=== PATIENT | male | born 1950 | race African-American/Black ===

== ENCOUNTER 2016-06-10 20:57 | Emergency (ER) | payer MEDICARE ==
[~2016-06-10] VITALS: Ht 175.3 cm; Wt 79.4 kg
[2016-06-10] MEDS ORDERED: IV NS 0.9% 1,000 ML BAG IV ONE (22:30)
[2016-06-10] MEDS ORDERED: ACETAMINOPHEN ES 500 MG TABLET PO ONE (22:30)
[2016-06-10 22:59] VITALS: BP 123/61
[2016-06-10] MEDS ORDERED: DEXAMETHASONE SOD PHOSPHATE 10 MG/ML VIAL IV ONE (23:00)
[2016-06-10] MEDS ORDERED: CEFTRIAXONE 1GM BAG (ER ONLY) 1 GM/50 ML PIGGYBACK IV ONE (23:00)
== END 2016-06-10 23:00 | disposition left against medical advice (07) ==
LOC: ER 21:06
DX: R53.1 Weakness (principal); R51 Headache
CPT/HCPCS: 99283; A4606; Z7610

== ENCOUNTER 2018-08-11 00:56 | Emergency (ER) | payer MEDICARE ==
[~2018-08-11] VITALS: Ht 175.3 cm; Wt 81.6 kg
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
[2018-08-11] MEDS ORDERED: HYDROCODONE/APAP 5/325MG 1 EACH TABLET ONE (02:12)
--- NOTE | 2018-08-11 02:21 | NUR ---
ASSOCIATE DOCTOR AT BEDSIDE FOR BLOOD DRAW
[2018-08-11] MEDS ORDERED: HYDROCODONE/APAP 5/325MG 1 EACH TABLET PO ONE (02:30)
[2018-08-11 02:36] LABS: BASOPHILS % (AUTO) 0.8 % (0.0-2.0); EOSINOPHILS % (AUTO) 1.5 % (0.0-6.0); HEMATOCRIT 37 % (39-51); HEMOGLOBIN 12.1 g/dL (13.5-17.5); LYMPHOCYTES # (AUTO) 2.4 /CMM (0.8-4.8); LYMPHOCYTES % (AUTO) 48.8 % (20.0-44.0); MEAN CORPUSCULAR HGB CONC 33 g/dl (31.0-36.0); MEAN CORPUSCULAR VOLUME 90 fL (80-96); MONOCYTES # (AUTO) 0.7 /CMM (0.1-1.30); MONOCYTES % (AUTO) 13.5 % (2.0-12.0); NEUTROPHILS # (AUTO) 1.7 /CMM (1.8-8.9); NEUTROPHILS % (AUTO) 35.4 % (43.0-81.0); PLATELET COUNT (AUTO) 168 /CMM (150-450); RED BLOOD CELL COUNT(AUTO) 4.09 MIL/uL (4.5-6.0); WHITE BLOOD COUNT (AUTO) 4.8 K/uL (4.3-11.0)
[2018-08-11 02:44] LABS: CALCIUM, SERUM 8.8 mg/dL (8.5-10.1); POTASSIUM 4.4 mmol/L (3.5-5.1)
[2018-08-11 02:57] LABS: ALBUMIN 3.3 g/dL (3.4-5.0); BILIRUBIN,DIRECT 0.1 mg/dL (0.0-0.2); BILIRUBIN,TOTAL 0.4 mg/dL (0.2-1.0); TOTAL PROTEIN, SERUM 7.4 g/dL (6.4-8.2)
--- NOTE | 2018-08-11 03:52 | NUR ---
Patient discharged to home in stable condition. Written and verbal after care instructions given. Patient verbalizes understanding of instruction.Pt ambulatory with a steady gait. Instructed not to drive, left with
[2018-08-11 03:53] VITALS: BP 125/80
== END 2018-08-11 03:54 | disposition home or self-care (01) ==
LOC: ER 00:58
DX: R07.89 Other chest pain (principal); R07.81 Pleurodynia
CPT/HCPCS: 36415; 71100; 80048; 80076; 83690; 85025; 99284; A4606